=== PATIENT | male | born 2000 | race Caucasian/White ===

== ENCOUNTER 2018-03-23 16:44 | Emergency (ER) | payer BC, SELFPAY ==
[2018-03-23 16:52] VITALS: BP 104/53; PULSE 63; RESP 18; TEMP 36.7; O2SAT 100
[2018-03-23 18:11] VITALS: BP 111/62; PULSE 68; RESP 16; TEMP 37; O2SAT 99
--- NOTE | 2018-03-23 18:19 | W.ED.GENAD ---
Discharge Plan Disposition Patient Disposition: HOME Condition: Improving Discharge Details Chief Complaint: Allergic Clinical Impression: Adverse effect of narcotic Primary Care Provider: NONE,NONE ED Provider: Bryn Hoover Discharge Instructions Instructions: Narcotic Pain Management (ED) Additional Instructions: Feel free to return to the emergency department for any new or worsening signs otherwise follow-up with your dentist in the next couple days for reassessment or for any further changes Stand Alone Forms: Work Release Referrals: Primary Care Provider [Outside] (Follow-up with your dentist as needed for reassessment or for any further changes ) Discharge Data Discharge Date/Time-TO BE ENTERED AT DEPARTURE: 03/23/18 18:29 Medical Decision Making Patient presenting to the emergency department for concern of allergic reaction to Vicodin. Patient states that he had a dental procedure earlier this week and has been mostly taking ibuprofen and here and there taken 1 tab of Vicodin as needed. This afternoon patient started having some worsening dental pain so he took 1 tablet waited 45 minutes felt no relief and took a second tablet. Then approximately 45 minutes after the second tablet patient started feeling lightheaded, intermittent hot cold after the medication and some mild shortness of breath. Patient states that symptoms have somewhat improved since arriving to the emergency department but the onset of symptoms is approximately 20 minutes prior to arrival. Physical exam is unremarkable and patient is otherwise stable with no acute distress. Of notation was mild hypotension upon arrival so patient was monitored and blood pressure reassessed and shows improvement and patient continues to have improvement of symptoms. I feel that patient is more than likely having side effects of narcotic pain medication and not allergic reaction given no physical exam findings to warrant allergic reaction. Patient was informed of side effects of narcotic medications and informed to use them sparingly and given that 2 tablets seem to cause more effects I informed him just to take 1 tablet and that he also may take ibuprofen along with the tablet. After discussion of diagnosis and plan of care patient has no further needs, questions, or concerns and states clear understanding to return to the emergency department for any worsening symptoms. HPI General Mode of arrival: ambulatory. Date/Time Provider Initiated Documentation: 03/23/18 17:40. Limitations to Documentation: no limitations. Information obtained by: patient and RN notes reviewed. History of Present Illness described as moderate, with intensity rated at 3. and is localized to the mouth. Patient reports no radiation. Patient started experiencing this minute(s) (20) and it has been constant. No relieving factors improve symptom(s), No exacerbating factors reported . Patient notes no other symptoms.. Patient did receive the following treatments prior to arrival, none General Stated Complaint: Allergic GUILLERMO: 3 Review of Systems Constitutional Denies body ache(s), Denies chills and Denies fever(s) ENT Reports as per HPI, Reports mouth pain, Denies throat swelling and Denies tongue swelling Cardiovascular Denies chest pain, Denies syncope and Reports dyspnea Respiratory Denies pain on inspiration and Reports dyspnea Gastrointestinal Denies abdominal pain, Denies nausea and Denies vomiting Integumentary/Breasts Denies rash Neurologic Reports confusion, Denies syncope and Denies sensory deficit Psychiatric Reports confusion Allergic/Immunologic Denies throat swelling and Denies tongue swelling [facility] Medical History [place] teeth extracted (Acute) Social History Smoking/Tobacco Use Status: Current every day Exam Const General: cooperative, no acute distress and not ill appearing Orientation: alert, awake and oriented x3 HENMT Head: normal to inspection Ears: hearing grossly normal bilaterally and TM's normal bilaterally General nose exam: external nose normal and nares normal Face and sinus: normal facial exam and face symmetric Mouth: oral mucosae normal, lip normal, tongue normal and moist mucous membranes Teeth and gingiva: dentition normal Throat: posterior oropharynx normal, tonsils normal and uvula midline Neck Neck: normal visual inspection, full ROM, no lymphadenopathy and no meningeal signs Lymphatic: no lymphadenopathy noted Resp Effort & Inspection: normal respiratory effort, able to speak in complete sentences and no respiratory distress Auscultation: clear to auscultation bilaterally Cardio Rate: regular rate Rhythm: regular rhythm Heart Sounds: S1 normal and S2 normal Skin General skin exam: no rashes or lesions noted Neuro General: alert, awake, oriented x3, moves all extremities and no focal motor deficits Sensory Exam: no sensory deficits noted Course Vital Signs Temperature 36.7 C 03/23/18 16:52 Pulse 63 03/23/18 16:52 Respiratory Rate 18 03/23/18 16:52 Blood Pressure 104/53 L 03/23/18 16:52 Pulse Oximetry 100 03/23/18 16:52 Temperature 37.0 C 03/23/18 18:11 Temperature Source Temporal Artery Scan 03/23/18 18:11 Pulse 68 03/23/18 18:11 Respiratory Rate 16 03/23/18 18:11 Respiratory Effort Non-Labored 03/23/18 16:55 Respiratory Pattern Normal 03/23/18 16:55 Blood Pressure 111/62 03/23/18 18:11 Blood Pressure Position Sitting 03/23/18 16:52 Pulse Oximetry 99 03/23/18 18:11 Oxygen Delivery Method Room Air 03/23/18 18:11 Oxygen Flow Rate 0 03/23/18 18:11
--- NOTE | 2018-03-23 18:22 | ED.GENADUL_ITS ---
Discharge Plan Disposition Patient Disposition: HOME Condition: Improving Discharge Details Chief Complaint: Allergic Clinical Impression: Adverse effect of narcotic Primary Care Provider: NONE,NONE ED Provider: Bryn Hoover Discharge Instructions Instructions: Narcotic Pain Management (ED) Additional Instructions: Feel free to return to the emergency department for any new or worsening signs otherwise follow-up with your dentist in the next couple days for reassessment or for any further changes Stand Alone Forms: Work Release Referrals: Primary Care Provider [Outside] (Follow-up with your dentist as needed for reassessment or for any further changes ) Discharge Data Discharge Date/Time-TO BE ENTERED AT DEPARTURE: 03/23/18 18:29 Medical Decision Making Patient presenting to the emergency department for concern of allergic reaction to Vicodin. Patient states that he had a dental procedure earlier this week and has been mostly taking ibuprofen and here and there taken 1 tab of Vicodin as needed. This afternoon patient started having some worsening dental pain so he took 1 tablet waited 45 minutes felt no relief and took a second tablet. Then approximately 45 minutes after the second tablet patient started feeling lightheaded, intermittent hot cold after the medication and some mild shortness of breath. Patient states that symptoms have somewhat improved since arriving to the emergency department but the onset of symptoms is approximately 20 minutes prior to arrival. Physical exam is unremarkable and patient is otherwise stable with no acute distress. Of notation was mild hypotension upon arrival so patient was monitored and blood pressure reassessed and shows improvement and patient continues to have improvement of symptoms. I feel that patient is more than likely having side effects of narcotic pain medication and not allergic reaction given no physical exam findings to warrant allergic reaction. Patient was informed of side effects of narcotic medications and informed to use them sparingly and given that 2 tablets seem to cause more effects I informed him just to take 1 tablet and that he also may take ibuprofen along with the tablet. After discussion of diagnosis and plan of care patient has no further needs, questions, or concerns and states clear understanding to return to the emergency department for any worsening symptoms. HPI General Mode of arrival: ambulatory . Date/Time Provider Initiated Documentation: 03/23/18 17:40 . Limitations to Documentation: no limitations . Information obtained by: patient and RN notes reviewed . History of Present Illness described as moderate, with intensity rated at 3. and is localized to the mouth. Patient reports no radiation. Patient started experiencing this minute(s) (20) and it has been constant. No relieving factors improve symptom(s), No exacerbating factors reported . Patient notes no other symptoms.. Patient did receive the following treatments prior to arrival, none General Stated Complaint: Allergic GUILLERMO: 3 Review of Systems Constitutional Denies body ache(s), Denies chills and Denies fever(s) ENT Reports as per HPI, Reports mouth pain, Denies throat swelling and Denies tongue swelling Cardiovascular Denies chest pain, Denies syncope and Reports dyspnea Respiratory Denies pain on inspiration and Reports dyspnea Gastrointestinal Denies abdominal pain, Denies nausea and Denies vomiting Integumentary/Breasts Denies rash Neurologic Reports confusion, Denies syncope and Denies sensory deficit Psychiatric Reports confusion Allergic/Immunologic Denies throat swelling and Denies tongue swelling [facility] Medical History [place] teeth extracted (Acute) Social History Smoking/Tobacco Use Status: Current every day Exam Const General: cooperative, no acute distress and not ill appearing Orientation: alert, awake and oriented x3 HENMT Head: normal to inspection Ears: hearing grossly normal bilaterally and TM's normal bilaterally General nose exam: external nose normal and nares normal Face and sinus: normal facial exam and face symmetric Mouth: oral mucosae normal, lip normal, tongue normal and moist mucous membranes Teeth and gingiva: dentition normal Throat: posterior oropharynx normal, tonsils normal and uvula midline Neck Neck: normal visual inspection, full ROM, no lymphadenopathy and no meningeal signs Lymphatic: no lymphadenopathy noted Resp Effort & Inspection: normal respiratory effort, able to speak in complete sentences and no respiratory distress Auscultation: clear to auscultation bilaterally Cardio Rate: regular rate Rhythm: regular rhythm Heart Sounds: S1 normal and S2 normal Skin General skin exam: no rashes or lesions noted Neuro General: alert, awake, oriented x3, moves all extremities and no focal motor deficits Sensory Exam: no sensory deficits noted Course Vital Signs Temperature 36.7 C 03/23/18 16:52 Pulse 63 03/23/18 16:52 Respiratory Rate 18 03/23/18 16:52 Blood Pressure 104/53 L 03/23/18 16:52 Pulse Oximetry 100 03/23/18 16:52 Temperature 37.0 C 03/23/18 18:11 Temperature Source Temporal Artery Scan 03/23/18 18:11 Pulse 68 03/23/18 18:11 Respiratory Rate 16 03/23/18 18:11 Respiratory Effort Non-Labored 03/23/18 16:55 Respiratory Pattern Normal 03/23/18 16:55 Blood Pressure 111/62 03/23/18 18:11 Blood Pressure Position Sitting 03/23/18 16:52 Pulse Oximetry 99 03/23/18 18:11 Oxygen Delivery Method Room Air 03/23/18 18:11 Oxygen Flow Rate 0 03/23/18 18:11
[2018-03-23 18:27] VITALS: BP 112/80; PULSE 80; RESP 18; TEMP 36.8; O2SAT 99
== END 2018-03-23 18:29 | disposition home or self-care (01) ==
PROVIDERS: Emergency Provider Nurse Practitioner Family
DX: T40.605A Adverse effect of unspecified narcotics, initial encounter (principal)
CPT/HCPCS: 99281